=== PATIENT | male | born 1990 | race Caucasian/White ===

== ENCOUNTER 2025-02-20 16:20 | Emergency (ER) | payer BC, SELFPAY ==
[2025-02-20 16:21] VITALS: BMI 29.5
[2025-02-20 16:45] VITALS: BP 130/74; PULSE 88; RESP 18; TEMP 36.9; O2SAT 99
--- NOTE | 2025-02-20 16:47 | PD.EDANIML ---
ED Animal Bite RME/HPI General Chief Complaint: Animal Bite Stated Complaint: DOG BIT R LEG Time Seen by Provider: 02/20/25 16:33 Arrival date/time: 02/20/25 16:20 RME / HPI RME / HPI narrative: 34-year-old male patient with no significant medical history, came in for evaluation regarding dog bite. Patient sustained a dog bite to the right posterior leg patient sustained 2 puncture wound nongaping. Patient is fully vaccinated with tetanus less than 5 years old. Patient told me that the dog belonged to somebody. No other injury noted. Incident happened earlier today Related Data Previous Rx's ?Medication ?Instructions ?Recorded amoxicillin 875 mg-potassium 1 tab PO BID #14 tabs 02/20/25 clavulanate 125 mg tablet ibuprofen 800 mg tablet 800 mg PO Q8H PRN pain #30 tabs 02/20/25 Allergies Allergy/AdvReac Type Severity Reaction Status Date / Time No Known Allergies Allergy Verified 02/20/25 16:23 Review of Systems Review of Systems Narrative Review of Systems: Review of system reviewed and within normal limits except mentioned in HPI ED Exam Narrative Physical exam: VITAL SIGNS: Reviewed. GENERAL APPEARANCE: Alert and interactive, follows commands, no acute distress, HEAD AND FACE: Non-traumatic. ENT: PERRL, pink conjunctivitis, eyelid no trauma, Mucous membrane moist. NECK: Supple, nontender, no nuchal rigidity. CHEST: No tenderness, no crepitus, no paradoxical movement, no retractions. LUNGS: Clear, well ventilated, symmetric, no rales, no wheezing, no ronchi, no stridor, good breath sounds bilaterally. HEART: Regular rate, regular rhythm, no murmur, no gallops. ABDOMEN: Soft, positive bowel sounds, nondistended, no guarding, nontender, no rebound, no masses, RECTAL: Deferred. GENITAL: Deferred. NEUROLOGICAL: Gross motor function intact sensory function intact, Appropriate for age. MUSCULOSKELETAL: low back nontender, full range of motion. EXTREMITIES: 2 puncture wound to the right posterior leg, nongaping slight tender, full range of motion. SKIN: Color pink, dry, no rash, no lacerations, no abrasions, no contusions. LYMPHATICS: Deferred. Course Quality Measures none Orders Category Date Time Status Amoxicillin/Pot Clav 875 [Augmentin 875] Med 02/20/25 16:46 Once 1 tab PO X1 ONE Ibuprofen Tab [Motrin Tab] Med 02/20/25 16:46 Once 800 mg PO X1 ONE Cy/Poly/Mariah Oint Packets [Neosporin Oint] Med 02/20/25 16:46 Once See Dose Instructions TOP X1 ONE Vital Signs Vital signs: Vital Signs Temperature 98.5 F 02/20/25 16:45 Pulse Rate 88 02/20/25 16:45 Respiratory Rate 18 02/20/25 16:45 Blood Pressure 130/74 02/20/25 16:45 Pulse Oximetry (%) 99 02/20/25 16:45 Oxygen Delivery Method Room Air 02/20/25 16:45 Animal Bite MDM Narrative MDM Narrative:: 34-year-old male patient with no significant medical history, came in for evaluation regarding dog bite. Patient sustained a dog bite to the right posterior leg patient sustained 2 puncture wound nongaping. Patient is fully vaccinated with tetanus less than 5 years old. Patient told me that the dog belonged to somebody. No other injury noted. Incident happened earlier today Wound cleansed with skin cleanser and Neosporin dressing. Patient received Augmentin and Motrin Patient was advised to follow-up with law enforcement regarding quarantine of the dog for 2 weeks Patient data External records reviewed:: None Clinical information provided by:: patient Social determinants that could affect healthcare access:: none Patient has the following chronic illnesses:: None How is presenting disease/condition affected by chronic disease/condition?: no chronic disease Evaluation data The following diagnostics were reviewed and interpreted by me:: other (specify) (None) Lab and/or radiology exams considered but not ordered:: None Interpretation Summary: None Medications / Prescriptions Medications or Prescriptions considered but not ordered:: None Medication administrations:: None Consultations Consultation(s) initiated? (list below): No Diagnosis Differential diagnosis animal bite: bite by animal and dog bite Most likely diagnosis given after review of the tests above:: Dog bite Admission Indicated Admission indicated?: not indicated Explain why admission is indicated or not indicated:: Stable Admission Request Was there a request for admission?: No Disposition Plan Disposition Plan: Discharge Discharge Attestation Discharge Attestation: The patient and all family members were given an opportunity to ask questions and understood the discharge instructions. Discharge instructions specifically effects, indications for sooner follow up or return to the emergency department, and the expected course of current diagnosis. Patient condition: Stable Discharge Plan Plan Patient Disposition: HOME (Self Care) Discharge Disposition comment: Stable Prescriptions/Referrals Prescriptions/Med Rec: New amoxicillin-pot clavulanate 875-125 mg tablet 1 tab PO BID Qty: 14 0RF ibuprofen 800 mg tablet 800 mg PO Q8H PRN (Reason: pain) Qty: 30 0RF Problem List Clinical Impression: Dog bite Patient/Caregiver Discharge Instructions Discharge Activity: activity as tolerated Education Materials: ED Dog Bite Additional Instructions: Thank you for the opportunity for serving you today. You are stable for discharged . You are advised to: Follow-up with your PCP in 1 to 2 days Return to ED for worsening of symptoms Increase oral fluids Take medication as prescribed Daily dressing with Neosporin Follow-up with low enforcement/animal control regarding quarantine of the dog for 2 weeks if something happened to the dog please come to the emergency room right away for rabies shots Print Language: Estonian Stand Alone Forms: [place] Award Info., Patient Portal Info Letter RISHI/NARDA Supervising Physician MAURO Supervising Physician: MD Mary
[2025-02-20] MEDS: POLY TOP (16:58)
[2025-02-20] MEDS: NEO TOP (16:58)
[2025-02-20] MEDS: BAC TOP (16:58)
[2025-02-20] MEDS: IBUPROFEN TAB 400 MG TABLET 800 MG PO (16:58)
[2025-02-20] MEDS: AMOXICILLIN/POT CLAV 875 TABLET 1 TAB PO (16:58)
== END 2025-02-20 17:10 | disposition home or self-care (01) ==
LOC: SERX 17:17
PROVIDERS: Emergency Provider Emergency Medicine
DX: S81.831A Puncture wound without foreign body, right lower leg, initial encounter (principal); W54.0XXA Bitten by dog, initial encounter
CPT/HCPCS: 99282; A9270